=== PATIENT | female | born 1930 | race Caucasian/White ===

== ENCOUNTER 2021-01-04 10:41 | Emergency (ER) | payer MEDICARE, BC ==
[~2021-01-04] VITALS: Ht 165.1 cm; Wt 79.5 kg
[2021-01-04] MEDS ORDERED: HYDROcodone/acetaminophen 10/325mg tab PO ONE (12:55)
[2021-01-04 13:11] VITALS: BP 171/83
== END 2021-01-04 13:17 | disposition home or self-care (01) ==
LOC: ER 10:42
DX: S92.421A Displaced fracture of distal phalanx of right great toe, initial encounter for closed fracture (principal); M79.671 Pain in right foot; G89.29 Other chronic pain; Z88.0 Allergy status to penicillin; Z88.8 Allergy status to other drugs, medicaments and biological substances; Z88.1 Allergy status to other antibiotic agents; W06.XXXA Fall from bed, initial encounter; Y93.89 Activity, other specified; Y92.89 Other specified places as the place of occurrence of the external cause; Y99.8 Other external cause status
CPT/HCPCS: 73630; 99284